=== PATIENT | male | born 1990 | race Caucasian/White ===

== ENCOUNTER 2020-09-13 11:59 | Emergency (ER) | payer MEDICAID ==
[2020-09-13 12:18] VITALS: BP 138/72; PULSE 85; O2SAT 99
--- NOTE | 2020-09-13 12:33 | ERPHSYRPT ---
- History of Present Illness Source: patient Patient Subjective Stated Complaint: toothache Triage Nursing Assessment: Patient ambulated back to ED and transferred self to bed. Patient A+O X3. Patient's skin pink, warm and dry. Patient complains of dental pain to upper right side of mouth for 5 days. Multiple teeth noted to be decayed and broken with red and swollen gums. Patient complains of pain 8/10. Physician History: Dental pain x 5 days. Pain is moderate and worse w eating. He denies fever and acute dental trauma. Timing/Duration: gradual onset Severity: moderate ENT Location: dental Prearrival Treatment: no prearrival treatment Modifying Factors: Improves With: other (Worse w chewing) Associated Symptoms: denies symptoms, jaw pain Allergies/Adverse Reactions: No Known Drug Allergies Allergy (Unverified 09/13/20 12:10) Hx Influenza Vaccination/Date Given: No Hx Pneumococcal Vaccination/Date Given: No Immunizations Up to Date: Yes Travel Risk - International Travel Have you traveled outside of the country in past 3 weeks: No - Coronavirus Screening Are you exhibiting any of the following symptoms?: No Close contact with a COVID-19 positive Pt in past 14-21 Days: No - Vaccine Status Have you recieved a Covid-19 vaccination: No - Review of Systems Constitutional: No Symptoms Eyes: No Symptoms Ears, Nose, & Throat: No Symptoms, Mouth Pain Respiratory: No Symptoms Cardiac: No Symptoms Abdominal/Gastrointestinal: No Symptoms Genitourinary Symptoms: No Symptoms Musculoskeletal: No Symptoms Skin: No Symptoms Neurological: No Symptoms Psychological: No Symptoms Endocrine: No Symptoms Hematologic/Lymphatic: No Symptoms Immunological/Allergic: No Symptoms - Past Medical History Pertinent Past Medical History: No Neurological History: No Pertinent History ENT History: No Pertinent History Cardiac History: No Pertinent History Respiratory History: No Pertinent History Endocrine Medical History: No Pertinent History Musculoskeletal History: No Pertinent History GI Medical History: No Pertinent History History: No Pertinent History Psycho-Social History: No Pertinent History Male Reproductive Disorders: No Pertinent History - Past Surgical History Past Surgical History: Yes Neuro Surgical History: No Pertinent History Cardiac: No Pertinent History Respiratory: No Pertinent History Gastrointestinal: No Pertinent History Genitourinary: No Pertinent History Musculoskeletal: Orthopedic Surgery Male Surgical History: No Pertinent History Other Surgical History: Left foot - Social History Smoking Status: Current some day smoker Exposure to second hand smoke: Yes Drug Use: marijuana Patient Lives Alone: No Significant Family History: no pertinent family hx - Nursing Vital Signs Nursing Vital Signs: Initial Vital Signs Temperature 97.5 F 09/13/20 12:10 Pulse Rate 85 09/13/20 12:10 Respiratory Rate 18 09/13/20 12:10 Blood Pressure 138/72 09/13/20 12:10 O2 Sat by Pulse Oximetry 99 09/13/20 12:10 Pain Scale Pain Intensity 8 - Physical Exam General Appearance: no apparent distress Eye Exam: bilateral eye: normal inspection, PERRL, EOMI Ear Exam: bilateral ear: auricle normal, canal normal, TM normal Nasal Exam: normal inspection Throat Exam: dental tenderness (Widespread dental decay w multiple decaying teeth and erosions to gingiva) Neck Exam: normal inspection, non-tender, supple, full range of motion, trachea midline Cardiovascular/Respiratory Exam: normal breath sounds, regular rate/rhythm, heart sounds normal Abdominal Exam: non-tender, soft Neurologic Exam: alert, oriented x 3, cooperative, power lineman II-XII nml as tested, normal mood/affect Skin Exam: normal color, warm, dry, No rash SpO2 Interpretation: normal SpO2: 99 O2 Delivery: Room Air - Course Nursing assessment & vital signs reviewed: Yes - Progress Progress Note: 09/13/20 12:31 Pt refuses IM pain meds - Departure Departure Disposition: Home Clinical Impression: Chronic dental pain, Pain due to dental caries Condition: Stable Critical Care Time: No Referrals: DOCTOR,NO FAMILY [Primary Care Provider] - Instructions: Tooth Abscess (DC), Tooth Decay, Adult (DC), Dental Pain (DC) Additional Instructions: Dentist EJ Prescriptions: Etodolac 400 mg [Lodine 400 mg] 400 mg PO BID PRN PRN #14 tablet PRN Reason: Pain Penicillin V Potassium 500 mg PO TID #21 tablet
== END 2020-09-13 12:39 | disposition home or self-care (01) ==
LOC: ED 11:59
DX: K02.9 Dental caries, unspecified (principal); K08.89 Other specified disorders of teeth and supporting structures
CPT/HCPCS: 99283